=== PATIENT | female | born 1985 | race Caucasian/White ===

== ENCOUNTER 2022-09-07 12:38 | Emergency (ER) | payer OTHER, SELFPAY ==
--- NOTE | ~2022-09-07 | US_ITS ---
EXAM: Pelvic Ultrasound CLINICAL INDICATION: Right lower quadrant abdominal pain COMPARISON: None TECHNIQUE: The pelvis was evaluated using transabdominal and transvaginal imaging. Color Doppler imaging and spectral analysis of the bilateral ovaries was also performed. FINDINGS: The uterus measures 9.3 x 4.8 x 5.1 cm in longitudinal by AP by transverse dimension. The endometrial stripe is not thickened and measures 1.3 cm. The cervix measures approximately 3.2 cm in length. Nabothian cysts are noted within the cervix. The left ovary measures approximately 2.3 x 1.5 x 1.7 cm and is normal. The right ovary measures approximately 3.0 x 1.9 x 2.9 cm and is also normal. Spectral analysis reveals normal arterial and venous waveforms in the bilateral ovaries. There are no abnormal adnexal masses. There is no free fluid in the pelvis. US/US pelvic and transvaginal IMPRESSION: Unremarkable sonographic imaging of the pelvis.
--- NOTE | ~2022-09-07 | US_ITS ---
EXAMINATION: ULTRASOUND APPENDIX CLINICAL INFORMATION: Right lower quadrant abdominal pain COMPARISON: None TECHNIQUE: Grayscale and color Doppler imaging was obtained in the right lower abdomen in an attempt to evaluate the appendix. FINDINGS: The appendix was not clearly visualized by ultrasound imaging. Peristalsing bowel noted within the right lower abdomen. No gross free intra-abdominal fluid. No superficial fluid collection identified. No abnormal color Doppler flow. Limited imaging of the right kidney is unremarkable without hydronephrosis. US/US appendix IMPRESSION: The appendix was not clearly visualized by ultrasound imaging. As you know, this does not exclude the diagnosis of acute appendicitis. Cross-sectional imaging can be obtained as clinically indicated.
--- NOTE | ~2022-09-07 | US_ITS ---
EXAM: Pelvic Ultrasound CLINICAL INDICATION: Right lower quadrant abdominal pain COMPARISON: None TECHNIQUE: The pelvis was evaluated using transabdominal and transvaginal imaging. Color Doppler imaging and spectral analysis of the bilateral ovaries was also performed. FINDINGS: The uterus measures 9.3 x 4.8 x 5.1 cm in longitudinal by AP by transverse dimension. The endometrial stripe is not thickened and measures 1.3 cm. The cervix measures approximately 3.2 cm in length. Nabothian cysts are noted within the cervix. The left ovary measures approximately 2.3 x 1.5 x 1.7 cm and is normal. The right ovary measures approximately 3.0 x 1.9 x 2.9 cm and is also normal. Spectral analysis reveals normal arterial and venous waveforms in the bilateral ovaries. There are no abnormal adnexal masses. There is no free fluid in the pelvis. US/US pelvic ovarian doppler IMPRESSION: Unremarkable sonographic imaging of the pelvis.
--- NOTE | 2022-09-07 12:53 | ED_ITS ---
HPI - Abdominal Pain General Chief Complaint: Abdominal Pain Stated Complaint: quest cyst on ovaries Source: patient Mode of arrival: ambulatory Limitations: no limitations History of Present Illness HPI narrative: 37 yo F presenting to the Ed c c/o of RLQ abd pain x 3 weeks. Associated N/V, chills, body aches and intermittent headaches. Seen at Urgent care yesterday had a negative Flu. Denies fevers, radiating of abd pain, dysuria, hematuria or abnormal vag discharge or any other symptoms at this time. MD elicited complaint: abdominal pain Onset (ago): week(s) (3) Pain Consistency: constant Location: RLQ Severity: mild Quality: aching Radiation: none Migration to: no migration Exacerbating factors: nothing Relieving factors: nothing Associated symptoms: nausea, vomiting and chills Related Data Previous Rx's Medication Instructions Recorded dicyclomine 20 mg tablet 20 mg PO QID PRN abdominal pain 09/09/22 #20 tabs Allergies Allergy/AdvReac Type Severity Reaction Status Date / Time cetirizine [From [facility]] Allergy Hives Verified 09/07/22 12:58 Penicillins Allergy Hives Verified 09/07/22 12:58 Review of Systems Review of Systems Constitutional : No Weight loss, No Fever, + Chills, No Night Sweats, No Fatigue, No Malaise ENT/Mouth : No Hearing loss, No Ear Pain, No Nasal Congestion, No Sinus Pain, No Hoarseness, No sore throat, No Rhinorrhea, No Swallowing Difficulty Eyes: No Eye Pain, No Swelling, No Redness, No Foreign Body, No Discharge, No Vision Changes Cardiovascular : No Chest Pain, No SOB, No Dyspnea on Exertion, No Orthopnea, No Edema, No Palpitations Respiratory : No Cough, No Sputum, No Wheezing, No Smoke Exposure, No Dyspnea Gastrointestinal : + Nausea, + Vomiting, No Diarrhea, No Constipation, + abdominal Pain, No Hematochezia, No Melena Genitourinary : no irregular bleeding, No Dysuria, No Urinary Frequency, No Hematuria, No Urinary Incontinence, No Urgency, No Flank Pain, No Urinary Flow Changes, No Hesitancy Musculoskeletal : No joint pain, + Myalgias, No Joint Swelling Skin : No Skin Lesions, No rash Neuro : No Weakness, No Numbness, No Paresthesias, No Loss of Consciousness, No Dizziness, + Headache Psych : No Anxiety/Panic, No Depression, No SI/HI/AH/VH, No Social Issues, Heme/Lymph: No Bruising, No Bleeding,No Lymphadenopathy Endocrine : No Polyuria, No Polydipsia, No Temperature Intolerance Yes all other systems are reviewed and are negative [facility] Past Medical History Attestation statement: The following information was validated with the patient. Source: old records reviewed and nursing notes reviewed Social History Social History Smoked in Last 30 Days: Yes Use of substances other than those prescribed or required for medical reasons: No Substance Use Type: Marijuana Advance Directives: No Advance Directives Information Provided: Yes Patient : No Physical Exam ED Vital Signs: BMI result Body Mass Index 28.3 Vital signs have been reviewed and all within normal limits Appearance: Alert. Oriented X3. No acute distress. Head: Normal external exam. Normocephalic. Eyes: PERRLA. EOMI. Conjunctiva and sclera normal. Eyelids normal. ENT: Pharynx normal. Uvula midline. Moist mucous membranes. No trismus noted. No drooling noted. No muffled voice noted. Neck: Normal inspection. Neck supple. FROM. No adenopathy. No meningeal signs. CVS: Normal heart rate and rhythm. Heart sound normal. No murmurs noted. Pulses normal throughout. Respiratory: No respiratory distress. Painless inspiration. Breath sounds normal. No wheezes/rales/rhonchi noted. Chest nontender. No accessory muscle usage noted or decreased air movement noted. Abdomen: Soft and and TTP to right lower abd Nondistended. No guarding. No rigidity. Bowel sounds normal in all 4 quadrants. No distention noted. No organomegaly noted. No visible injury noted. No rebound tenderness. Negative Rovsing sign. Negative obturator's sign. Negative psoas sign. Negative Her sign. Back: No CVA tenderness. Full range of motion noted. Skin: Skin warm and dry. Normal skin color. Normal skin turgor. No rashes/lesions/lacerations noted. Extremities: Extremities exhibit normal range of motion. Extremities nontender. Neuro: Oriented X 3. No motor deficit. No sensory deficit. Reflexes normal. Normal steady gait. CN's II-XII intact bilaterally? Course Course Course Narrative: RME-12:55pm - 37 yo F presenting to the Ed c c/o of RLQ abd pain x 3 weeks. Associated N/V, chills, body aches and intermittent headaches. Seen at Urgent care yesterday had a negative Flu. Denies fevers, radiating of abd pain, dysuria, hematuria or abnormal vag discharge or any other symptoms at this time. Plan: Labs, UA, UHCG, COVID/RSV/flu swab, ovarian U/S and appendix US ordered at this time. Reevaluation(s) Reevaluation #1: Labs reviewed and all labs WNL. Ua WNL. UHCG neg. Patient had normal ultrasounds. Although patient eloped before her results return. Medical Decision Making Lab Data MDM Lab Attestation statement: I reviewed the patient's lab results. 09/07/22 14:30 09/07/22 14:30 Labs: Lab Results 09/07/22 09/07/22 09/07/22 Range/Units 14:30 14:30 14:30 WBC 4.8 (4.8-10.8) X10*3/uL RBC 4.11 L (4.20-5.50) X10*6/uL Hgb 12.7 (12.0-16.0) g/dl Hct 38.7 (37.0-47.0) % MCV 94.2 (80.0-98.0) fL MCH 30.9 (27.0-33.0) pg MCHC 32.8 (31.0-35.0) g/dl RDW 13.2 (11.0-16.0) % Plt Count 227 (160-400) X10*3/uL MPV 11.1 (9.4-12.3) fL Immature Gran % (Auto) 0.0 (0.0-0.4) % Neut % (Auto) 49.1 (45-73) % Lymph % (Auto) 36.4 (20-40) % [place] % (Auto) 12.0 H (2-11) % Eos % (Auto) 1.7 (0-4) % Baso % (Auto) 0.8 (0-2) % Lymph # (Auto) 1.7 (1.2-4.9) X10*3/uL [place] # (Auto) 0.6 (0.1-1.2) X10*3/uL Eos # (Auto) 0.1 (0.0-0.4) X10*3/uL Baso # (Auto) 0.0 (0.0-0.2) X10*3/uL Abs Immat Gran (auto) 0.00 (0.00-0.03) X10*3/uL Absolute Neuts (auto) 2.3 (2.0-8.3) x10*3/uL Absolute Nucleated RBC 0.000 (0.0-0.012) X10*3/uL Nucleated RBC % (auto) 0.0 (0.0-0.2) /100WBC ESR 13 (0-20) MM/HR PT 10.5 (10.0-13.1) SEC INR 0.9 (0.9-1.1) Sodium (135-145) mmol/L Potassium (3.3-5.1) mmol/L Chloride (96-108) mmol/L Carbon Dioxide (22-29) mmol/L Anion Gap (12-20) BUN (9-16) mg/dL Creatinine (0.5-1.4) mg/dL Estim Creat Clear Calc Estimated GFR Random Glucose (60-115) mg/dL Calcium (8.4-10.2) mg/dL Magnesium (1.6-2.6) mg/dL Total Bilirubin (0.0-1.0) mg/dL AST (5-31) U/L ALT (0-31) U/L Alkaline Phosphatase (39-117) U/L C-Reactive Protein (< or = 0.50) mg/dL Total Protein (6.5-8.0) g/dL Albumin (3.5-5.0) g/dL Lipase (8-78) U/L Beta HCG, Quant mIU/mL Urine Color Urine Appearance Urine pH (5.0-9.0) Ur Specific [place] (1.005-1.025) Urine Protein (Neg-Trace) mg/dL Urine Glucose (UA) (Negative) mg/dL Urine Ketones (Negative) mg/dL Urine Blood (Negative) Urine Nitrite (Negative) Ur Leukocyte Esterase (Negative) Influenza Type A (PCR) (Negative) Influenza Type B (PCR) (Negative) RSV RNA Qual (PCR) (Negative) SARS-CoV-2 RNA (RT-PCR) (Negative) 09/07/22 09/07/22 09/07/22 Range/Units 14:30 14:30 14:30 WBC (4.8-10.8) X10*3/uL RBC (4.20-5.50) X10*6/uL Hgb (12.0-16.0) g/dl Hct (37.0-47.0) % MCV (80.0-98.0) fL MCH (27.0-33.0) pg MCHC (31.0-35.0) g/dl RDW (11.0-16.0) % Plt Count (160-400) X10*3/uL MPV (9.4-12.3) fL Immature Gran % (Auto) (0.0-0.4) % Neut % (Auto) (45-73) % Lymph % (Auto) (20-40) % [place] % (Auto) (2-11) % Eos % (Auto) (0-4) % Baso % (Auto) (0-2) % Lymph # (Auto) (1.2-4.9) X10*3/uL [place] # (Auto) (0.1-1.2) X10*3/uL Eos # (Auto) (0.0-0.4) X10*3/uL Baso # (Auto) (0.0-0.2) X10*3/uL Abs Immat Gran (auto) (0.00-0.03) X10*3/uL Absolute Neuts (auto) (2.0-8.3) x10*3/uL Absolute Nucleated RBC (0.0-0.012) X10*3/uL Nucleated RBC % (auto) (0.0-0.2) /100WBC ESR (0-20) MM/HR PT (10.0-13.1) SEC INR (0.9-1.1) Sodium 138 (135-145) mmol/L Potassium 4.6 (3.3-5.1) mmol/L Chloride 109 H (96-108) mmol/L Carbon Dioxide 23 (22-29) mmol/L Anion Gap 11 L (12-20) BUN 15 (9-16) mg/dL Creatinine 0.82 (0.5-1.4) mg/dL Estim Creat Clear Calc 94.9 Estimated GFR > 60 Random Glucose 103 (60-115) mg/dL Calcium 9.5 (8.4-10.2) mg/dL Magnesium 1.9 (1.6-2.6) mg/dL Total Bilirubin 0.3 (0.0-1.0) mg/dL AST 14 (5-31) U/L ALT 13 (0-31) U/L Alkaline Phosphatase 71 (39-117) U/L C-Reactive Protein 0.20 (< or = 0.50) mg/dL Total Protein 7.0 (6.5-8.0) g/dL Albumin 3.9 (3.5-5.0) g/dL Lipase 22 (8-78) U/L Beta HCG, Quant < 2 mIU/mL Urine Color Yellow Urine Appearance Clear Urine pH 5.5 (5.0-9.0) Ur Specific [place] 1.020 (1.005-1.025) Urine Protein Negative (Neg-Trace) mg/dL Urine Glucose (UA) Negative (Negative) mg/dL Urine Ketones Negative (Negative) mg/dL Urine Blood Negative (Negative) Urine Nitrite Negative (Negative) Ur Leukocyte Esterase Negative (Negative) Influenza Type A (PCR) NEGATIVE (Negative) Influenza Type B (PCR) NEGATIVE (Negative) RSV RNA Qual (PCR) NEGATIVE (Negative) SARS-CoV-2 RNA (RT-PCR) NEGATIVE (Negative) Independent Interpretation I performed an independent interpretation of an: Ultrasound Interpretation: Ovarian/transvaginal/Doppler ultrasound FINDINGS: The uterus measures 9.3 x 4.8 x 5.1 cm in longitudinal by AP by transverse dimension. The endometrial stripe is not thickened and measures 1.3 cm. The cervix measures approximately 3.2 cm in length. Nabothian cysts are noted within the cervix. The left ovary measures approximately 2.3 x 1.5 x 1.7 cm and is normal. The right ovary measures approximately 3.0 x 1.9 x 2.9 cm and is also normal. Spectral analysis reveals normal arterial and venous waveforms in the bilateral ovaries. There are no abnormal adnexal masses. There is no free fluid in the pelvis. US/US pelvic and transvaginal IMPRESSION: Unremarkable sonographic imaging of the pelvis. Discharge Plan Discharge Clinical Impression: Abdominal pain Patient Disposition: Elopement Prescriptions: No Action dicyclomine 20 mg tablet 20 mg PO QID PRN (Reason: abdominal pain) Qty: 20 0RF Discharge Date/Time: 09/07/22 16:52
[2022-09-07 12:54] VITALS: BP 123/85; PULSE 70; RESP 16; TEMP 36.1; O2SAT 99; BMI 28.3
[2022-09-07 14:42] LABS: MANUAL DIFF FLAG NO
[2022-09-07 14:43] LABS: Basophils Percent Auto 0.8 % (0-2); Eosinophils Absolute Auto 0.1 X10*3/uL (0.0-0.4); Eosinophils Percent Auto 1.7 % (0-4); Hematocrit 38.7 % (37.0-47.0); Hemoglobin 12.7 g/dl (12.0-16.0); Lymphocytes Absolute Auto 1.7 X10*3/uL (1.2-4.9); Lymphocytes Percent Auto 36.4 % (20-40); Mean Corpuscular HGB Conc 32.8 g/dl (31.0-35.0); Mean Corpuscular Hemoglobin 30.9 pg (27.0-33.0); Mean Corpuscular Volume 94.2 fL (80.0-98.0); Mean Platelet Volume 11.1 fL (9.4-12.3); Monocytes Absolute Auto 0.6 X10*3/uL (0.1-1.2); Neutrophils Absolute Auto 2.3 x10*3/uL (2.0-8.3); Neutrophils Percent Auto 49.1 % (45-73); Platelet Count 227 X10*3/uL (160-400); Red Blood Count 4.11 X10*6/uL (4.20-5.50); Red Cell Distribution Width 13.2 % (11.0-16.0); White Blood Count 4.8 X10*3/uL (4.8-10.8)
[2022-09-07 14:44] LABS: Appearance Urine Clear; Color Urine Yellow; Glucose Urine UA Negative (Negative); Leukocyte Esterase Urine Negative (Negative); Nitrite Urine Negative (Negative); PH 5.5 (5.0-9.0); Urine Blood Negative (Negative); Urine Ketones Negative (Negative); Urine Protein Negative (Neg-Trace)
[2022-09-07 14:48] LABS: INTERNATIONAL NORM RATIO 0.9 (0.9-1.1); Prothrombin Time 10.5 SEC (10.0-13.1)
[2022-09-07 15:04] LABS: Alanine Aminotransferase 13 U/L (0-31); Albumin Level 3.9 g/dL (3.5-5.0); Alkaline Phosphatase 71 U/L (39-117); Anion Gap 11 (12-20); Aspartate Amino Transferase 14 U/L (5-31); Bilirubin Total 0.3 mg/dL (0.0-1.0); Blood Urea Nitrogen 15 mg/dL (9-16); Calcium 9.5 mg/dL (8.4-10.2); Carbon Dioxide 23 mmol/L (22-29); Chloride 109 mmol/L (96-108); Creatinine Clr Calc Pharmacy 94.9; Estimated Glomerular Filt Rate > 60; Glucose Random 103 mg/dL (60-115); Magnesium 1.9 mg/dL (1.6-2.6); Potassium 4.6 mmol/L (3.3-5.1); Sodium 138 mmol/L (135-145)
[2022-09-07 15:08] LABS: HCG Quantitative < 2 mIU/mL; Lipase 22 U/L (8-78)
[2022-09-07 15:19] LABS: Influenza A PCR NEGATIVE (Negative); Influenza B PCR NEGATIVE (Negative); Resp Syncy Virus RNA Qual PCR NEGATIVE (Negative); SARS COV2 PCR INHOUSE NEGATIVE (Negative)
[2022-09-07 15:31] LABS: Erythrocyte Sedimentation Rate 13 MM/HR (0-20)
== END 2022-09-07 16:52 | disposition left against medical advice (07) ==
PROVIDERS: Physician Assistant Medical; Emergency Provider Emergency Medicine
DX: R10.31 Right lower quadrant pain (principal); R10.2 Pelvic and perineal pain; R51.9 Headache, unspecified; M79.10 Myalgia, unspecified site; Z20.822 Contact with and (suspected) exposure to COVID-19; Z20.828 Contact with and (suspected) exposure to other viral communicable diseases; Z79.899 Other long term (current) drug therapy
CPT/HCPCS: 0241U; 36415; 76705; 76830; 76856; 80053; 81003; 83690; 83735; 84702; 85025; 85610; 85652; 86140; 93975; 99282; 99283; 99284

== ENCOUNTER 2022-09-09 16:26 | Emergency (ER) | payer OTHER, SELFPAY ==
--- NOTE | ~2022-09-09 | CT_ITS ---
EXAMINATION: CT ABDOMEN AND PELVIS WITH CONTRAST CLINICAL INFORMATION: Right lower quadrant pain COMPARISON: Ultrasound appendix 09/07/2022 and ultrasound pelvis 09/07/2022 TECHNIQUE: Multidetector volumetric images were obtained from the superior aspect of the liver through the pubic symphysis following administration 85 mL of Omnipaque 350 intravenous contrast. Sagittal and coronal reformatted images were obtained on the technologist's workstation. Oral contrast: No This CT examination was performed using dose optimization techniques as appropriate, variously including the following: *Automated exposure control *Adjustment of mA and/or kV according to patient size (this includes techniques or standardized protocols for targeted exams where dose is matched to indication/reason for exam; i.e. extremities or head) *Use of iterative reconstruction technique DLP: 541 mGy-cm FINDINGS: LUNG BASES: The visualized lung bases are unremarkable. LIVER, GALLBLADDER, AND BILIARY TREE: The liver is normal in size, shape, and attenuation. No focal hepatic lesion or biliary ductal dilatation is present. The gallbladder is unremarkable with no evidence of radiopaque gallstones, gallbladder wall thickening, or obvious pericholecystic inflammatory changes. PANCREAS: Unremarkable. SPLEEN: Unremarkable. ADRENAL GLANDS: Unremarkable. KIDNEYS AND URETERS: The kidneys are normal in size, shape, and attenuation. No hydronephrosis, hydroureter, or calculi seen. No perinephric stranding. BLADDER: Unremarkable. GASTROINTESTINAL TRACT: The small and large bowel are unremarkable. The appendix is unremarkable. ABDOMINAL WALL: No significant hernia is appreciated. LYMPH NODES: Normal. VASCULAR: Unremarkable. PELVIC VISCERA: Unremarkable. OSSEOUS STRUCTURES: Unremarkable. CT/CT abdomen pelvis w IV con IMPRESSION: A cause for the patient's right lower quadrant pain has not been found. The appendix is normal. Fleischner guidelines were followed.
[2022-09-09 16:43] VITALS: BP 140/71; PULSE 97; RESP 18; TEMP 36.7; O2SAT 98; BMI 28.6
--- NOTE | 2022-09-09 16:47 | ED.ABDPAIN ---
HPI - Abdominal Pain General Chief Complaint: Abdominal Pain <SARAH Angel - Last Filed: 09/09/22 16:52> Stated Complaint: Abdnormal ultra sound <SARAH Angel - Last Filed: 09/09/22 16:52> Time Seen by Provider: 09/09/22 17:32 <SARAH Angel - Last Filed: 09/09/22 16:52> Source: patient <Conrado Lopez MD - Last Filed: 09/10/22 01:15> Mode of arrival: ambulatory <Conrado Lopez MD - Last Filed: 09/10/22 01:15> Limitations: no limitations <Conrado Lopez MD - Last Filed: 09/10/22 01:15> History of Present Illness HPI narrative: Patient with chronic abdominal pain for months getting worse for last 3 weeks seen PCP who did the lab workup and ultrasound negative unable to see the appendix comes here for CT scan as primary care doctor wanted a CT scan done which takes longer time as outpatient. Patient not in any distress no nausea no vomiting no fever demanding the CT scan which was ordered in the triage patient denied any urinary complaints patient does have history of constipation was seen walking in the ER without any discomfort still demanding a CT scan unable to understand indications <Conrado Lopez MD - Last Filed: 09/10/22 01:15> Related Data Home Medications: Previous Rx's Medication Instructions Recorded dicyclomine 20 mg tablet 20 mg PO QID PRN abdominal pain 09/09/22 #20 tabs <SARAH Angel - Last Filed: 09/09/22 16:52> Allergies/Adverse Reactions: Allergies Allergy/AdvReac Type Severity Reaction Status Date / Time cetirizine [From [facility]] Allergy Hives Verified 09/07/22 12:58 Penicillins Allergy Hives Verified 09/07/22 12:58 <SARAH Angel - Last Filed: 09/09/22 16:52> Review of Systems Review of Systems Yes all other systems are reviewed and are negative <Conrado Lopez MD - Last Filed: 09/10/22 01:15> PMFSH Social History Social History: Social History Smoked in Last 30 Days: Yes Use of substances other than those prescribed or required for medical reasons: No Substance Use Type: Marijuana Advance Directives: No Advance Directives Information Provided: Yes Patient : No <SARAH Angel - Last Filed: 09/09/22 16:52> Physical Exam ED Vital Signs: Vital Signs - 24 hr 09/09/22 16:43 09/09/22 18:00 Temperature 98.0 F 98.3 F Pulse Rate 97 63 Respiratory Rate 18 16 Blood Pressure 140/71 H 117/72 Pulse Oximetry 98 100 Oxygen Delivery Method Room Air Room Air BMI result Body Mass Index 28.6 <SARAH Angel - Last Filed: 09/09/22 16:52> Vital Signs - 24 hr 09/09/22 16:43 09/09/22 18:00 Temperature 98.0 F 98.3 F Pulse Rate 97 63 Respiratory Rate 18 16 Blood Pressure 140/71 H 117/72 Pulse Oximetry 98 100 Oxygen Delivery Method Room Air Room Air BMI result Body Mass Index 28.6 <Conrado Lopez MD - Last Filed: 09/10/22 01:15> Appearance: Alert. Oriented X3. No acute distress. Eyes: PERRLA, No Nystagmus ENT: Pharynx normal. Oral Mucosa moist Neck: Normal inspection. Neck supple. CVS: Normal heart rate and rhythm. Pulses normal. Respiratory: No respiratory distress. Equal air entry bilateral, no wheezing/rales/rhonchi Abdomen: Soft and mild tenderness right mid abdomen no rebound tenderness guarding Bowel sounds are present, no mass palpable, no CVA tenderness Skin: Skin warm and dry. Normal skin color. Normal skin turgor. Extremities: No lower extremity edema. No calf tenderness Neuro: Oriented X 3. No motor deficit. <Conrado Lopez MD - Last Filed: 09/10/22 01:15> Course Course Course Narrative: RME - 37 yo female presenting with 3 weeks of intermittent, sharp RLQ pain associated with nausea and bloating in that area. Seen in triage 2 days ago for the same - had labs and U/S of her ovaries and appendix. Labs were unremarkable. Pelvic U/S unremarkable but appendix not visualized. She ended up leaving before getting the results of anything but reviewed them online with her PCP. PCP recommended she come in for CT scan given ongoing pains. Tender RLQ on exam but soft. Will get repeat labs and CT scan for further evaluation. Stable to go back to waiting room until treatment room available. <SARAH Angel - Last Filed: 09/09/22 16:52> Medical Decision Making Medical Decision Making [facility] Narrative: . Patient with Nonspecific chronic lower abdominal pain CT scan negative for acute pathology , workup negative clinically patient has IBS will start patient on dicyclomine <Conrado Lopez MD - Last Filed: 09/10/22 01:15> Lab Data [facility] Lab Attestation statement: I reviewed the patient's lab results. <Conrado Lopez MD - Last Filed: 09/10/22 01:15> Result Diagrams: 09/09/22 16:54 09/09/22 16:54 <SARAH Angel - Last Filed: 09/09/22 16:52> Labs: Lab Results 09/09/22 09/09/22 09/09/22 Range/Units 16:54 16:54 17:46 WBC 5.3 (4.8-10.8) X10*3/uL RBC 4.27 (4.20-5.50) X10*6/uL Hgb 13.4 (12.0-16.0) g/dl Hct 39.5 (37.0-47.0) % MCV 92.5 (80.0-98.0) fL MCH 31.4 (27.0-33.0) pg MCHC 33.9 (31.0-35.0) g/dl RDW 13.1 (11.0-16.0) % Plt Count 236 (160-400) X10*3/uL MPV 11.2 (9.4-12.3) fL Immature Gran % (Auto) 0.2 (0.0-0.4) % Neut % (Auto) 45.1 (45-73) % Lymph % (Auto) 40.7 H (20-40) % Talbot % (Auto) 10.9 (2-11) % Eos % (Auto) 2.3 (0-4) % Baso % (Auto) 0.8 (0-2) % Lymph # (Auto) 2.2 (1.2-4.9) X10*3/uL Talbot # (Auto) 0.6 (0.1-1.2) X10*3/uL Eos # (Auto) 0.1 (0.0-0.4) X10*3/uL Baso # (Auto) 0.0 (0.0-0.2) X10*3/uL Abs Immat Gran (auto) 0.01 (0.00-0.03) X10*3/uL Absolute Neuts (auto) 2.4 (2.0-8.3) x10*3/uL Absolute Nucleated RBC 0.000 (0.0-0.012) X10*3/uL Nucleated RBC % (auto) 0.0 (0.0-0.2) /100WBC Sodium 137 (135-145) mmol/L Potassium 4.2 (3.3-5.1) mmol/L Chloride 108 (96-108) mmol/L Carbon Dioxide 23 (22-29) mmol/L Anion Gap 10 L (12-20) BUN 14 (9-16) mg/dL Creatinine 0.80 (0.5-1.4) mg/dL Estim Creat Clear Calc 97.8 Estimated GFR > 60 Random Glucose 96 (60-115) mg/dL Calcium 9.8 (8.4-10.2) mg/dL Magnesium 2.0 (1.6-2.6) mg/dL Total Bilirubin 0.2 (0.0-1.0) mg/dL Direct Bilirubin < 0.2 (0.0-0.5) mg/dL AST 14 (5-31) U/L ALT 10 (0-31) U/L Alkaline Phosphatase 69 (39-117) U/L Total Protein 7.4 (6.5-8.0) g/dL Albumin 4.0 (3.5-5.0) g/dL Urine Color Yellow Urine Appearance Clear Urine pH 5.5 (5.0-9.0) Ur Specific Exira 1.025 (1.005-1.025) Urine Protein Negative (Neg-Trace) mg/dL Urine Glucose (UA) Negative (Negative) mg/dL Urine Ketones Negative (Negative) mg/dL Urine Blood Negative (Negative) Urine Nitrite Negative (Negative) Ur Leukocyte Esterase Negative (Negative) Urine Test (NEGATIVE) 09/09/22 Range/Units 17:46 WBC (4.8-10.8) X10*3/uL RBC (4.20-5.50) X10*6/uL Hgb (12.0-16.0) g/dl Hct (37.0-47.0) % MCV (80.0-98.0) fL MCH (27.0-33.0) pg MCHC (31.0-35.0) g/dl RDW (11.0-16.0) % Plt Count (160-400) X10*3/uL MPV (9.4-12.3) fL Immature Gran % (Auto) (0.0-0.4) % Neut % (Auto) (45-73) % Lymph % (Auto) (20-40) % Talbot % (Auto) (2-11) % Eos % (Auto) (0-4) % Baso % (Auto) (0-2) % Lymph # (Auto) (1.2-4.9) X10*3/uL Talbot # (Auto) (0.1-1.2) X10*3/uL Eos # (Auto) (0.0-0.4) X10*3/uL Baso # (Auto) (0.0-0.2) X10*3/uL Abs Immat Gran (auto) (0.00-0.03) X10*3/uL Absolute Neuts (auto) (2.0-8.3) x10*3/uL Absolute Nucleated RBC (0.0-0.012) X10*3/uL Nucleated RBC % (auto) (0.0-0.2) /100WBC Sodium (135-145) mmol/L Potassium (3.3-5.1) mmol/L Chloride (96-108) mmol/L Carbon Dioxide (22-29) mmol/L Anion Gap (12-20) BUN (9-16) mg/dL Creatinine (0.5-1.4) mg/dL Estim Creat Clear Calc Estimated GFR Random Glucose (60-115) mg/dL Calcium (8.4-10.2) mg/dL Magnesium (1.6-2.6) mg/dL Total Bilirubin (0.0-1.0) mg/dL Direct Bilirubin (0.0-0.5) mg/dL AST (5-31) U/L ALT (0-31) U/L Alkaline Phosphatase (39-117) U/L Total Protein (6.5-8.0) g/dL Albumin (3.5-5.0) g/dL Urine Color Urine Appearance Urine pH (5.0-9.0) Ur Specific Exira (1.005-1.025) Urine Protein (Neg-Trace) mg/dL Urine Glucose (UA) (Negative) mg/dL Urine Ketones (Negative) mg/dL Urine Blood (Negative) Urine Nitrite (Negative) Ur Leukocyte Esterase (Negative) Urine Test NEGATIVE (NEGATIVE) <SARAH Angel - Last Filed: 09/09/22 16:52> Lab Results 09/09/22 09/09/22 09/09/22 Range/Units 16:54 16:54 17:46 WBC 5.3 (4.8-10.8) X10*3/uL RBC 4.27 (4.20-5.50) X10*6/uL Hgb 13.4 (12.0-16.0) g/dl Hct 39.5 (37.0-47.0) % MCV 92.5 (80.0-98.0) fL MCH 31.4 (27.0-33.0) pg MCHC 33.9 (31.0-35.0) g/dl RDW 13.1 (11.0-16.0) % Plt Count 236 (160-400) X10*3/uL MPV 11.2 (9.4-12.3) fL Immature Gran % (Auto) 0.2 (0.0-0.4) % Neut % (Auto) 45.1 (45-73) % Lymph % (Auto) 40.7 H (20-40) % Talbot % (Auto) 10.9 (2-11) % Eos % (Auto) 2.3 (0-4) % Baso % (Auto) 0.8 (0-2) % Lymph # (Auto) 2.2 (1.2-4.9) X10*3/uL Talbot # (Auto) 0.6 (0.1-1.2) X10*3/uL Eos # (Auto) 0.1 (0.0-0.4) X10*3/uL Baso # (Auto) 0.0 (0.0-0.2) X10*3/uL Abs Immat Gran (auto) 0.01 (0.00-0.03) X10*3/uL Absolute Neuts (auto) 2.4 (2.0-8.3) x10*3/uL Absolute Nucleated RBC 0.000 (0.0-0.012) X10*3/uL Nucleated RBC % (auto) 0.0 (0.0-0.2) /100WBC Sodium 137 (135-145) mmol/L Potassium 4.2 (3.3-5.1) mmol/L Chloride 108 (96-108) mmol/L Carbon Dioxide 23 (22-29) mmol/L Anion Gap 10 L (12-20) BUN 14 (9-16) mg/dL Creatinine 0.80 (0.5-1.4) mg/dL Estim Creat Clear Calc 97.8 Estimated GFR > 60 Random Glucose 96 (60-115) mg/dL Calcium 9.8 (8.4-10.2) mg/dL Magnesium 2.0 (1.6-2.6) mg/dL Total Bilirubin 0.2 (0.0-1.0) mg/dL Direct Bilirubin < 0.2 (0.0-0.5) mg/dL AST 14 (5-31) U/L ALT 10 (0-31) U/L Alkaline Phosphatase 69 (39-117) U/L Total Protein 7.4 (6.5-8.0) g/dL Albumin 4.0 (3.5-5.0) g/dL Urine Color Yellow Urine Appearance Clear Urine pH 5.5 (5.0-9.0) Ur Specific Exira 1.025 (1.005-1.025) Urine Protein Negative (Neg-Trace) mg/dL Urine Glucose (UA) Negative (Negative) mg/dL Urine Ketones Negative (Negative) mg/dL Urine Blood Negative (Negative) Urine Nitrite Negative (Negative) Ur Leukocyte Esterase Negative (Negative) Urine Test (NEGATIVE) 09/09/22 Range/Units 17:46 WBC (4.8-10.8) X10*3/uL RBC (4.20-5.50) X10*6/uL Hgb (12.0-16.0) g/dl Hct (37.0-47.0) % MCV (80.0-98.0) fL MCH (27.0-33.0) pg MCHC (31.0-35.0) g/dl RDW (11.0-16.0) % Plt Count (160-400) X10*3/uL MPV (9.4-12.3) fL Immature Gran % (Auto) (0.0-0.4) % Neut % (Auto) (45-73) % Lymph % (Auto) (20-40) % Talbot % (Auto) (2-11) % Eos % (Auto) (0-4) % Baso % (Auto) (0-2) % Lymph # (Auto) (1.2-4.9) X10*3/uL Talbot # (Auto) (0.1-1.2) X10*3/uL Eos # (Auto) (0.0-0.4) X10*3/uL Baso # (Auto) (0.0-0.2) X10*3/uL Abs Immat Gran (auto) (0.00-0.03) X10*3/uL Absolute Neuts (auto) (2.0-8.3) x10*3/uL Absolute Nucleated RBC (0.0-0.012) X10*3/uL Nucleated RBC % (auto) (0.0-0.2) /100WBC Sodium (135-145) mmol/L Potassium (3.3-5.1) mmol/L Chloride (96-108) mmol/L Carbon Dioxide (22-29) mmol/L Anion Gap (12-20) BUN (9-16) mg/dL Creatinine (0.5-1.4) mg/dL Estim Creat Clear Calc Estimated GFR Random Glucose (60-115) mg/dL Calcium (8.4-10.2) mg/dL Magnesium (1.6-2.6) mg/dL Total Bilirubin (0.0-1.0) mg/dL Direct Bilirubin (0.0-0.5) mg/dL AST (5-31) U/L ALT (0-31) U/L Alkaline Phosphatase (39-117) U/L Total Protein (6.5-8.0) g/dL Albumin (3.5-5.0) g/dL Urine Color Urine Appearance Urine pH (5.0-9.0) Ur Specific Exira (1.005-1.025) Urine Protein (Neg-Trace) mg/dL Urine Glucose (UA) (Negative) mg/dL Urine Ketones (Negative) mg/dL Urine Blood (Negative) Urine Nitrite (Negative) Ur Leukocyte Esterase (Negative) Urine Test NEGATIVE (NEGATIVE) <Conrado Lopez MD - Last Filed: 09/10/22 01:15> Medications Administered Discontinued Medications Generic Name Dose Route Start Last Admin Trade Name Freq PRN Reason Stop Dose Admin Iohexol 100 ml 09/09/22 19:43 09/09/22 19:44 Iohexol 350 Mg/Ml 100 Ml Infus..Btl IV 09/09/22 19:44 85 ml ONCE ONE Administration <SARAH Angel - Last Filed: 09/09/22 16:52> Medications Administered Discontinued Medications Generic Name Dose Route Start Last Admin Trade Name Freq PRN Reason Stop Dose Admin Iohexol 100 ml 09/09/22 19:43 09/09/22 19:44 Iohexol 350 Mg/Ml 100 Ml Infus..Btl IV 09/09/22 19:44 85 ml ONCE ONE Administration <Conrado Lopez MD - Last Filed: 09/10/22 01:15> Discharge Plan Discharge Clinical Impression: Irritable bowel syndrome <SARAH Angel - Last Filed: 09/09/22 16:52> Patient Disposition: Home, Self-Care <SARAH Angel - Last Filed: 09/09/22 16:52> Instructions: Irritable Bowel Syndrome (ED) <SARAH Angel - Last Filed: 09/09/22 16:52> Additional Instructions: Drink plenty of fluids Take Bentyl for abdominal pain as needed Follow-up with PCP <SARAH Angel - Last Filed: 09/09/22 16:52> Prescriptions: New dicyclomine 20 mg tablet 20 mg PO QID PRN (Reason: abdominal pain) Qty: 20 0RF <SARAH Angel - Last Filed: 09/09/22 16:52> Stand Alone Forms: Work/School Release <SARAH Angel - Last Filed: 09/09/22 16:52> Interventions: ED Discharge Assessment Last Done: 09/09/22 21:05 <SARAH Angel - Last Filed: 09/09/22 16:52> Discharge Date/Time: 09/09/22 21:07 <SARAH Angel - Last Filed: 09/09/22 16:52>
[2022-09-09 17:02] LABS: MANUAL DIFF FLAG NO
[2022-09-09 17:03] LABS: Basophils Percent Auto 0.8 % (0-2); Eosinophils Absolute Auto 0.1 X10*3/uL (0.0-0.4); Eosinophils Percent Auto 2.3 % (0-4); Hematocrit 39.5 % (37.0-47.0); Hemoglobin 13.4 g/dl (12.0-16.0); Imm Gran Abs Auto 0.01 X10*3/uL (0.00-0.03); Imm Gran Pct Auto 0.2 % (0.0-0.4); Lymphocytes Absolute Auto 2.2 X10*3/uL (1.2-4.9); Lymphocytes Percent Auto 40.7 % (20-40); Mean Corpuscular HGB Conc 33.9 g/dl (31.0-35.0); Mean Corpuscular Hemoglobin 31.4 pg (27.0-33.0); Mean Corpuscular Volume 92.5 fL (80.0-98.0); Mean Platelet Volume 11.2 fL (9.4-12.3); Monocytes Absolute Auto 0.6 X10*3/uL (0.1-1.2); Monocytes Percent Auto 10.9 % (2-11); Neutrophils Absolute Auto 2.4 x10*3/uL (2.0-8.3); Neutrophils Percent Auto 45.1 % (45-73); Platelet Count 236 X10*3/uL (160-400); Red Blood Count 4.27 X10*6/uL (4.20-5.50); Red Cell Distribution Width 13.1 % (11.0-16.0); White Blood Count 5.3 X10*3/uL (4.8-10.8)
[2022-09-09 17:30] LABS: Alanine Aminotransferase 10 U/L (0-31); Alkaline Phosphatase 69 U/L (39-117); Anion Gap 10 (12-20); Aspartate Amino Transferase 14 U/L (5-31); Bilirubin Direct < 0.2 mg/dL (0.0-0.5); Bilirubin Total 0.2 mg/dL (0.0-1.0); Blood Urea Nitrogen 14 mg/dL (9-16); Calcium 9.8 mg/dL (8.4-10.2); Carbon Dioxide 23 mmol/L (22-29); Chloride 108 mmol/L (96-108); Creatinine Clr Calc Pharmacy 97.8; Estimated Glomerular Filt Rate > 60; Glucose Random 96 mg/dL (60-115); Potassium 4.2 mmol/L (3.3-5.1); Sodium 137 mmol/L (135-145); Total Protein 7.4 g/dL (6.5-8.0)
[2022-09-09 18:00] VITALS: BP 117/72; PULSE 63; RESP 16; TEMP 36.8; O2SAT 100
[2022-09-09 18:01] LABS: Appearance Urine Clear; Color Urine Yellow; Glucose Urine UA Negative (Negative); Leukocyte Esterase Urine Negative (Negative); Nitrite Urine Negative (Negative); PH 5.5 (5.0-9.0); Specific Gravity - Urine 1.025 (1.005-1.025); Urine Blood Negative (Negative); Urine Ketones Negative (Negative); Urine Protein Negative (Neg-Trace)
[2022-09-09 18:03] LABS: UPreg QC Valid YES; Urine Pregnancy NEGATIVE (NEGATIVE)
--- NOTE | 2022-09-09 19:42 | PC.NURSE ---
Assumed care of pt. at 1900. Pt. resting in bed, watching tv on her phone at this time. Pt. reports pain at 5/10 on her lower right quadrant. IV was placed for cat scan with contrast.
[2022-09-09] MEDS: iohexoL 350 MG/ML 100 ML INFUS..BTL IV (19:44)
== END 2022-09-09 21:07 | disposition home or self-care (01) ==
PROVIDERS: Physician Assistant; Emergency Provider Internal Medicine
DX: K58.9 Irritable bowel syndrome, unspecified (principal); R10.31 Right lower quadrant pain; F12.90 Cannabis use, unspecified, uncomplicated
CPT/HCPCS: 36415; 74177; 80048; 80076; 81003; 81025; 83735; 85025; 99284; Q9967